=== PATIENT | male | born 1990 | race Caucasian/White ===

== ENCOUNTER 2019-03-26 20:10 | Emergency (ER) | payer BC ==
[2019-03-26] MEDS ORDERED: Acetaminophen 325 MG Tab PO ONE (20:36)
[2019-03-26] MEDS ORDERED: Amoxicillin/Clavulanate K 875-125 MG Tab PO ONE (21:00)
--- NOTE | 2019-03-26 21:07 | EDM.PDOC ---
ED HPI GENERAL MEDICAL PROBLEM - General Chief Complaint: ENT Problem Stated Complaint: FEVER, ACHE, SORE THROAT Time Seen by Provider: 03/26/19 20:50 Source of Information: Reports: Patient, Family, RN History Limitations: Reports: No Limitations - History of Present Illness INITIAL COMMENTS - FREE TEXT/NARRATIVE: ED with c/o sore throat fever and right ear pain, occasional cough. Throat pain x 2 weeks, last 3 days worsening. Tmax at home today 103.5 Poor appetite, little fluids. 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 Throat Pain Score (Numeric/FACES): 3 - Related Data Allergies Allergy/AdvReac Type Severity Reaction Status Date / Time No Known Allergies Allergy Verified 03/26/19 20:23 Home Meds: Home Meds Lisinopril 10 mg PO DAILY 03/26/19 [History] atorvaSTATin [Lipitor] 10 mg PO BEDTIME 03/26/19 [History] Past Medical History Cardiovascular History: Reports: High Cholesterol, Hypertension Social & Family History - Tobacco Use Smoking Status *Q: Never Smoker Second Hand Smoke Exposure: No - Caffeine Use Caffeine Use: Reports: Soda - Recreational Drug Use Recreational Drug Use: No ED ROS ENT - Review of Systems Review Of Systems: ROS reveals no pertinent complaints other than HPI. ED EXAM, ENT - Physical Exam Exam: See Below Exam Limited By: No Limitations General Appearance: Alert, Mild Distress Eye Exam: Bilateral Eye: EOMI Ears: Normal External Exam, TM Bulging (right), TM Fluid Nose: Normal Inspection Mouth/Throat: Pharyngeal Erythema, Tonsillar Erythema, Tonsillar Exudates, Tonsillar Swelling. No: Uvular Deviation Head: Atraumatic, Normocephalic Neck: Full Range of Motion, Lymphadenopathy (L), Lymphadenopathy (R) Respiratory/Chest: No Respiratory Distress, Lungs Clear, Normal Breath Sounds Cardiovascular: Normal Peripheral Pulses, Regular Rate, Rhythm GI/Abdominal: Normal Bowel Sounds Extremities: Normal Inspection, Normal Range of Motion Neurological: Alert, Oriented, Normal Cognition Skin: Warm, Dry, Intact, Normal Color Course - Vital Signs Last Recorded V/S: Last Vital Signs Temp 101.5 F H 03/26/19 20:26 Pulse 120 H 03/26/19 20:26 Resp 16 03/26/19 20:26 BP 135/80 03/26/19 20:26 Pulse Ox 98 03/26/19 20:26 - Orders/Labs/Meds Orders: Active Orders 24 hr Category Date Time Status CULTURE STREP A CONFIRMATION [RM] Stat Lab 03/26/19 20:18 Results STREP SCRN A RAPID W CULT CONF [] Stat Lab 03/26/19 20:18 Results Meds: Medications Discontinued Medications Generic Name Dose Route Start Last Admin Trade Name Esteban PRN Reason Stop Dose Admin Acetaminophen 650 mg 03/26/19 20:36 03/26/19 20:41 Tylenol PO 03/26/19 20:37 650 mg NOW ONE Administration Amoxicillin/Clavulanate Potassium 1 tab 03/26/19 21:00 03/26/19 21:04 Augmentin 875 Mg/125 Mg PO 03/26/19 21:01 1 tab ONETIME ONE Administration Departure - Departure Time of Disposition: 21:05 Disposition: Home, Self-Care 01 Condition: Good Clinical Impression: Tonsillitis - Discharge Information *PRESCRIPTION DRUG MONITORING PROGRAM REVIEWED*: No *COPY OF PRESCRIPTION DRUG MONITORING REPORT IN PATIENT YANETH: No Instructions: Tonsillitis, [id number] Forms: ED Department Discharge Additional Instructions: Increase fluids alternate tylenol and ibuprofen every 4 hours as needed for fever/discomfort chloaseptic throat spray as needed augmentin 875/125 one twice daily for 7days recheck clinic if not improving - My Orders Last 24 Hours: My Active Orders 03/26/19 20:18 CULTURE STREP A CONFIRMATION [RM] Stat STREP SCRN A RAPID W CULT CONF [] Stat - Assessment/Plan Last 24 Hours: My Active Orders 03/26/19 20:18 CULTURE STREP A CONFIRMATION [RM] Stat STREP SCRN A RAPID W CULT CONF [] Stat
== END 2019-03-26 21:25 | disposition home or self-care (01) ==
LOC: DL.ED 20:10
DX: J03.90 Acute tonsillitis, unspecified (principal); Z79.899 Other long term (current) drug therapy
CPT/HCPCS: 87081; 87430; 87804; 99283; A9270